=== PATIENT | male | born 1975 | race Caucasian/White ===

== ENCOUNTER 2021-09-04 18:48 | Emergency (ER) | payer MEDICARE, MEDICAID ==
[~2021-09-04] VITALS: Ht 180.3 cm; Wt 129.5 kg
--- NOTE | 2021-09-04 20:11 | PHYS DOC ---
Past Medical History Past Medical History: Anxiety, Schizophrenia Additional Past Medical Histor: cellulitis (TREVOR MEJIAS APRN) Smoking Status: Current Every Day Smoker Alcohol Use: None (TREVOR MEJIAS APRN) General Adult EDM: Chief Complaint: LOWER EXTREMITY SWELLING HPI: HPI: Patient is a 46-year-old male that presents today with increased swelling and pain in the left leg. Patient states pain started in the left ankle area on Friday and has gradually moved up the leg, patient has pain up until his mid thigh. Patient also noticed on the right leg there is an open wound area on the back of his calf area that is draining, he states that is new. Patient does have a past medical history of high in cellulitis in his right lower extremity a couple years ago that was diagnosed and treated at [facility], patient denies history of DVT or diabetes. Patient does have a extensive psychiatric history for which she is on numerous medications for. Patient states that he took some Tylenol at 1:00 today patient does state that while he was in the waiting room waiting to be seen he did break out in a sweat he is unsure if he has been running a fever (TREVOR MEJIAS [employer]GEANT [employer]RECTIONS) Review of Systems: Review of Systems: Constitutional: Denies fever or chills. [] Eyes: Denies change in visual acuity. [] HENT: Denies nasal congestion or sore throat. [] Respiratory: Denies cough or shortness of breath. [] Cardiovascular: Denies chest pain or edema. [] GI: Denies abdominal pain, nausea, vomiting, bloody stools or diarrhea. [] : Denies dysuria. [] Musculoskeletal: Increased pain and swelling in the left lower extremity, open wound on the right back calf area that is draining Integument: Denies rash. [] Neurologic: Denies headache, focal weakness or sensory changes. [] Endocrine: Denies polyuria or polydipsia. [] Lymphatic: Denies swollen glands. [] Psychiatric: Denies depression or anxiety. [] (TREVOR MEJIAS [employer]) Heart Score: C/O Chest Pain: N/A Risk Factors: Risk Factors: DM, Current or recent (<one month) smoker, HTN, HLP, family history of CAD, obesity. Risk Scores: Score 0 - 3: 2.5% MACE over next 6 weeks - Discharge Home Score 4 - 6: 20.3% MACE over next 6 weeks - Admit for Clinical Observation Score 7 - 10: 72.7% MACE over next 6 weeks - Early Invasive Strategies (TREVOR MEJIAS APRN) C/O Chest Pain: No (SHERWIN DONG MD) Allergies: Allergies: Allergies Coded Allergies Type Severity Reaction Last Updated Verified No Known Drug Allergies 09/04/21 No (TREVOR MEJIAS APRN) Physical Exam: PE: Constitutional: Patient is an obese male in mild distress HENT: Normocephalic, atraumatic, bilateral external ears normal, oropharynx moist, no oral exudates, nose normal. [] Eyes: PERRLA, EOMI, conjunctiva normal, no discharge. [] Neck: Normal range of motion, no tenderness, supple, no stridor. [] Cardiovascular:Heart rate regular rhythm, no murmur [] Lungs & Thorax: Bilateral breath sounds clear to auscultation [] Abdomen: Bowel sounds normal, soft, no tenderness, no masses, no pulsatile masses. [] Skin: Discoloration noted to the right lower extremity, due to patient's inability to move unable to determine the size of the wound but there is a drainage wound noted behind right calf. Back: No tenderness, no CVA tenderness. [] Extremities: Left leg is swollen skin is taut, redness noted in the ankle traveling up the leg and into the mid thigh mostly on the inner aspect of the leg leg is warm to touch pedal pulses intact bilaterally, patient does have 3+ pitting edema on the right side and 4+ pitting edema on the left Neurologic: Alert and oriented X 3, normal motor function, normal sensory function, no focal deficits noted. [] Psychologic: Affect flat, judgement normal, mood normal. [] (TREVOR MEJIAS APRN) Current Patient Data: Vital Signs: Vital Signs Date Time Temp Pulse Resp B/P (MAP) Pulse Ox O2 Delivery O2 Flow Rate FiO2 09/04/21 19:40 98.3 80 16 137/60 (85) 97 Room Air 98.3 (TREVOR MEJIAS APRN) EKG: EKG: [] (TREVOR MEJIAS APRN) Radiology/Procedures: Radiology/Procedures: [] (TREVOR MEJIAS [employer]GE[employer]RECTIONS) Radiology/Procedures: [facility] [address] [place] [address] IMAGING REPORT Signed PATIENT: ASHLY JARQUIN PACCOUNT: [id number] : 1975 LOCATION: ER AGE: 46 SEX: M EXAM STATUS: REG ER ORD. PHYSICIAN: TREVOR MEJIAS APRN REASON: increase swelling and pain PROCEDURE: VENOUS LOWER EXTREMITY LEFT EXAM: Left lower extremity venous Doppler. HISTORY: Left lower extremity pain/swelling. COMPARISON: None. FINDINGS: Grayscale and Doppler analysis of the left lower extremity deep venous system was performed with graded compression and augmentation. The common femoral, greater saphenous, superficial femoral, popliteal and calf veins were assessed. There is no evidence of deep venous thrombosis. Subcutaneous edema is noted. Prominent left inguinal lymph nodes measure up to 2.6 x 2.5 cm and are likely reactive in this setting. IMPRESSION: 1. No evidence of deep venous thrombosis. 2. Prominent left inguinal lymph nodes are likely reactive. Correlate for left lower extremity inflammation. Electronically signed by: Sayra Ramos MD (09/04/2021 9:34 PM) [id number] DICTATED and SIGNED BY: DIONNE RAMOS MD DATE: 09/04/21 [id number] (SHERWIN DONG MD) Course & Med Decision Making: Course & Med Decision Making Pertinent Labs and Imaging studies reviewed. (See chart for details) Check out given to Dr Dong. [] (TREVOR MEJIAS APRN) Course & Med Decision Making Accepted patient care at shift change, pending ultrasound results (SHERWIN DONG MD) Dragon Disclaimer: Dragon Disclaimer: This electronic medical record was generated, in whole or in part, using a voice recognition dictation system. (TREVOR MEJIAS APRN) Departure Departure Impression: Primary Impression: Left leg cellulitis Disposition: HOME / SELF CARE / HOMELESS Condition: STABLE Patient Instructions: Cellulitis Scripts Cephalexin (CEPHALEXIN) 500 Mg Tablet 1 TAB PO TID for infection for 7 Days, #21 TAB Prov: SHERWIN DONG MD 09/04/21 Sulfamethoxazole/Trimethoprim (BACTRIM DS TABLET) 1 Each Tablet 1 TAB PO BID for infection for 7 Days, #14 TAB Prov: SHERWIN DONG MD 09/04/21 TREVOR MEJIAS APRN Sep 04, 2021 20:11 SHERWIN DONG MD Sep 04, 2021 23:05
[2021-09-04] MEDS ORDERED: MORPHINE SULFATE 4 MG/ML INJ. IVP ONE (20:15)
--- NOTE | 2021-09-04 21:37 | RAD ---
EXAM: Left lower extremity venous Doppler. HISTORY: Left lower extremity pain/swelling. COMPARISON: None. FINDINGS: Grayscale and Doppler analysis of the left lower extremity deep venous system was performed with graded compression and augmentation. The common femoral, greater saphenous, superficial femoral , popliteal and calf veins were assessed. There is no evidence of deep venous thrombosis. Subcutaneous edema is noted. Prominent left inguinal lymph nodes measure up to 2.6 x 2.5 cm and are likely reactive in this setting. IMPRESSION: 1. No evidence of deep venous thrombosis. 2. Prominent left inguinal lymph nodes are likely reactive. Correlate for left lower extremity inflam mation. Electronically signed by: Sayra Ramos MD (09/04/2021 9:34 PM) [id number]
[2021-09-04 21:52] LABS: BASO % 1 % (0-3); EOS # 0.2 x10^3/uL (0.0-0.7); EOS % 3 % (0-3); HEMOGLOBIN 11.1 g/dL (13.0-17.5); LYMPH # 2.4 x10^3/uL (1.0-4.8); LYMPH % 32 % (24-48); MEAN CORPUSCULAR HEMOGLOBIN 27 pg (25-35); MEAN CORPUSCULAR HGB CONC 33 g/dL (31-37); MEAN CORPUSCULAR VOLUME 83 fL (79-100); MONO # 0.5 x10^3/uL (0.0-1.1); MONO % 7 % (0-9); NEUT # 4.3 x10^3/uL (1.8-7.7); NEUT % 57 % (31-73); PLATELET COUNT 250 x10^3/uL (140-400); RED BLOOD COUNT 4.09 x10^6/uL (4.30-5.70); WHITE BLOOD COUNT 7.5 x10^3/uL (4.0-11.0)
[2021-09-04 22:07] LABS: CALCIUM 8.5 mg/dL (8.5-10.1); CREATININE 0.8 mg/dL (0.7-1.3); POTASSIUM 4.2 mmol/L (3.5-5.1)
[2021-09-04 22:13] LABS: ALBUMIN 3.4 g/dL (3.4-5.0); ALBUMIN/GLOBULIN RATIO 0.8 (1.0-1.7); TOTAL BILIRUBIN 0.3 mg/dL (0.2-1.0); TOTAL PROTEIN 7.5 g/dL (6.4-8.2)
[2021-09-04] MEDS ORDERED: SULF1TAB24 PO (23:04)
[2021-09-04] MEDS ORDERED: CEPH500T PO (23:04)
[2021-09-04] MEDS ORDERED: CEPHALEXIN 250 MG CAPSULE. PO ONE (23:15)
[2021-09-04] MEDS ORDERED: SMZ/TMP 800/160MG TABLET. PO ONE (23:15)
[2021-09-04 23:41] VITALS: BP 130/73
== END 2021-09-05 | disposition home or self-care (01) ==
LOC: ER 18:48
DX: L03.116 Cellulitis of left lower limb (principal); F20.9 Schizophrenia, unspecified; F17.200 Nicotine dependence, unspecified, uncomplicated
CPT/HCPCS: 36415; 80053; 85025; 87040; 93971; 96374; 99285; J2270